=== PATIENT | male | born 1965 | race Caucasian/White ===

== ENCOUNTER 2022-04-18 15:32 | Inpatient (IN) | payer BC ==
[~2022-04-18 15:32] MED LIST: Iopamidol-370 76% 500 ML 1 ML ONE
[2022-04-18] MEDS ORDERED: Chlorhexidine Gluconate 15 ML UDCUP SSP ONE (16:10)
[2022-04-18] MEDS ORDERED: EPINEPHrine 1 MG/ML AMP ONE (16:10)
[2022-04-18] MEDS ORDERED: MINERAL OIL/WHITE PETROLATUM 3.5 GM TUBE ONE (16:10)
[2022-04-18] MEDS ORDERED: Lidocaine 1% (PF) 30 ML VIAL ONE (16:10)
[2022-04-18 16:29] LABS: Hemoglobin 16.1 g/dL (14.0-18.0); Mean Corpuscular HGB CONC 33.3 g/dL (32.0-36.0); Mean Corpuscular Hemoglobin 31.5 pg (27.0-31.0); Mean Corpuscular Volume 94.6 fl (78.0-98.0); Mean Platelet Volume 7.2 fL (7.4-10.4); Platelet Count 207 10x3/uL (130-400); RBC Distribution Width 12.2 % (11.5-14.5); Red Blood Cell (RBC) Count 5.09 mill/uL (4.70-6.10)
[2022-04-18 16:45] LABS: Band 22 % (5-11); Lymphocytes 3 % (21-51); MDiff Complete? YES; Monocytes 7 % (0-10); Neutrophil 68 % (42-75); Platelet Morphology Comment Appears Adequate; RBC Morphology Normal
[2022-04-18 16:47] LABS: ALT (SGPT) 46 U/L (8-55); AST (SGOT) 19 U/L (5-34); Albumin 4.3 g/dL (3.5-5.0); Alkaline Phosphatase 106 U/L (40-110); Anion Gap 15 mmol/L (10-20); BUN (Urea Nitrogen) 13 mg/dL (8.4-25.7); Bilirubin, Total 2.5 mg/dL (0.2-1.2); Calc. Creatinine Clearance 0 mL/min (70-130); Calcium 9.7 mg/dL (7.8-10.44); Carbon Dioxide 24 mmol/L (22-29); Chloride 98 mmol/L (98-107); Estimated GFR 75; Globulin 3.9 g/dL (2.4-3.5); Glucose 129 mg/dL (70-105); Potassium 3.6 mmol/L (3.5-5.1); Protein, Total 8.2 g/dL (6.0-8.3); Sodium 133 mmol/L (136-145)
[2022-04-18] MEDS ORDERED: Ondansetron PF 4 MG/2 ML Vial ONE (17:09)
[2022-04-18] MEDS ORDERED: Morphine 4 MG/ML VIAL ONE (17:09)
[2022-04-18] MEDS ORDERED: Ampicillin/Sulbactam 3 GM in Sodium Chloride 0.9% 100 ML IVPB SCH (17:15)
[2022-04-18] MEDS ORDERED: Acetaminophen 325 MG TAB PO PRN (18:23)
[2022-04-18] MEDS ORDERED: Ondansetron ODT 4 MG TAB PO PRN (18:23)
[2022-04-18] MEDS ORDERED: Ondansetron PF 4 MG/2 ML Vial IVP PRN (18:23)
[2022-04-18] MEDS ORDERED: Acetaminophen 650 MG Suppository PR PRN (18:23)
[2022-04-18 18:34] LABS: SARS-CoV-2 NAA Rapid Test DETECTED (NotDetected)
[2022-04-18] MEDS ORDERED: Morphine 4 MG/ML VIAL SLOW IVP PRN (18:34)
[2022-04-18] MEDS ORDERED: hydrALAZINE 20 MG/ML VIAL SLOW IVP PRN (18:35)
[2022-04-18] MEDS ORDERED: Ketorolac Tromethamine 30 MG/ML VIAL ONE (18:49)
[2022-04-18] MEDS: Sodium Chloride 0.9% 1,000 ML IV SCH (20:33)
[2022-04-18] MEDS: Morphine 4 MG/ML VIAL SLOW IVP PRN (20:34)
[2022-04-18] MEDS: Famotidine/PF 20 mg/2ml Vial SLOW IVP SCH (20:35)
[2022-04-18 20:36] VITALS: BMI 43.5
[2022-04-18] MEDS: Famotidine 20 MG TAB PO SCH (22:27)
[2022-04-19] MEDS: Ampicillin/Sulbactam 3 GM in Sodium Chloride 0.9% 100 ML IVPB SCH ×5 (00:30→23:47)
[2022-04-19] MEDS: Morphine 4 MG/ML VIAL SLOW IVP PRN (03:42)
[2022-04-19] MEDS ORDERED: Chlorhexidine Gluconate 15 ML UDCUP SSP ONE (04:07)
[2022-04-19] MEDS ORDERED: Hydrocortisone 1% Cream 30 GM TUBE ONE (04:07)
[2022-04-19] MEDS ORDERED: Lidocaine 1% PF 5 ML VIAL ONE ×2 (04:07→07:31)
[2022-04-19] MEDS ORDERED: EPINEPHrine 1 MG/ML AMP ONE (04:09)
[2022-04-19] MEDS ORDERED: Lidocaine 1% MPF 2 ML VIAL ONE (04:09)
[2022-04-19] MEDS ORDERED: Fentanyl 250 MCG/5 ML VIAL ONE (05:39)
[2022-04-19] MEDS ORDERED: Midazolam HCl 2 mg/2 ml Vial ONE (05:54)
[2022-04-19] MEDS: Sodium Chloride 0.9% 1,000 ML IV SCH ×3 (06:15→23:52)
[2022-04-19] MEDS ORDERED: Bupivacaine/Epinephrine 0.25% 30 ML VIAL ONE (06:19)
[2022-04-19] MEDS: Famotidine/PF 20 mg/2ml Vial SLOW IVP SCH ×2 (08:20→20:39)
[2022-04-19] MEDS: Famotidine 20 MG TAB PO SCH ×2 (08:21→20:38)
[2022-04-19] MEDS ORDERED: Morphine 4 MG/ML VIAL SLOW IVP PRN (09:34)
[2022-04-19] MEDS ORDERED: HYDROcodone/Acetaminophen 5/325 mg Tablet PO PRN (09:42)
[2022-04-19 10:29] LABS: INR-International Normal Ratio 1.3; Prothrombin Time 16.3 sec (12.0-14.7)
[2022-04-19 10:30] LABS: PTT 33.2 sec (22.9-36.1)
[2022-04-19] MEDS: D5 1/2 NS w/20 mEq KCL 1,000 ML IV SCH ×2 (10:36→23:35)
[2022-04-19 11:24] LABS: Band 18 % (5-11); Hemoglobin 13.3 g/dL (14.0-18.0); Lymphocytes 2 % (21-51); MDiff Complete? YES; Mean Corpuscular HGB CONC 33.3 g/dL (32.0-36.0); Mean Corpuscular Hemoglobin 32.3 pg (27.0-31.0); Mean Platelet Volume 7.4 fL (7.4-10.4); Monocytes 3 % (0-10); Neutrophil 77 % (42-75); Platelet Count 179 10x3/uL (130-400); Platelet Morphology Comment Appears Adequate; RBC Distribution Width 12.2 % (11.5-14.5); RBC Morphology Normal; Red Blood Cell (RBC) Count 4.11 mill/uL (4.70-6.10); White Blood Cell (WBC) Count 14.7 10x3/uL (4.8-10.8)
[2022-04-19] MEDS: Ibuprofen 800 MG TAB PO SCH ×3 (11:53→23:47)
[2022-04-19] MEDS: Chlorhexidine Gluconate 15 ML UDCUP SSP SCH ×3 (11:53→23:47)
[2022-04-19] MEDS: Atorvastatin Calcium 20 MG TAB PO SCH (20:39)
[2022-04-20] MEDS: Ampicillin/Sulbactam 3 GM in Sodium Chloride 0.9% 100 ML IVPB SCH ×4 (05:21→23:27)
[2022-04-20] MEDS: Chlorhexidine Gluconate 15 ML UDCUP SSP SCH ×4 (05:21→23:28)
[2022-04-20] MEDS: Ibuprofen 800 MG TAB PO SCH ×4 (05:21→23:28)
[2022-04-20 06:42] LABS: Hemoglobin 12.6 g/dL (14.0-18.0); Mean Corpuscular HGB CONC 33.5 g/dL (32.0-36.0); Mean Corpuscular Hemoglobin 32.5 pg (27.0-31.0); Mean Corpuscular Volume 97.2 fl (78.0-98.0); Mean Platelet Volume 8.5 fL (7.4-10.4); Platelet Count 165 10x3/uL (130-400); RBC Distribution Width 11.9 % (11.5-14.5); Red Blood Cell (RBC) Count 3.87 mill/uL (4.70-6.10); White Blood Cell (WBC) Count 14.7 10x3/uL (4.8-10.8)
[2022-04-20 07:00] LABS: Band 11 % (5-11); Lymphocytes 4 % (21-51); MDiff Complete? YES; Monocytes 7 % (0-10); Neutrophil 78 % (42-75)
[2022-04-20] MEDS: Famotidine/PF 20 mg/2ml Vial SLOW IVP SCH ×2 (08:06→20:05)
[2022-04-20] MEDS: Famotidine 20 MG TAB PO SCH ×2 (08:07→20:05)
[2022-04-20] MEDS: Atorvastatin Calcium 20 MG TAB PO SCH (20:05)
[2022-04-21] MEDS: Ampicillin/Sulbactam 3 GM in Sodium Chloride 0.9% 100 ML IVPB SCH ×2 (05:41→11:26)
[2022-04-21] MEDS: Ibuprofen 800 MG TAB PO SCH ×2 (05:41→11:26)
[2022-04-21] MEDS: Chlorhexidine Gluconate 15 ML UDCUP SSP SCH ×2 (05:41→11:51)
[2022-04-21 06:52] LABS: #Basophils 0.1 thou/uL (0.0-0.2); #Lymphocytes 1.1 thou/uL (1.20-3.40); #Monocytes 0.9 thou/uL (0.11-0.59); #Neutrophils 11.4 thou/uL (1.40-6.50); %Basophils 0.4 % (0.0-1.0); %Eosinophils 0.1 % (0.0-10.0); %Monocytes 6.7 % (0.0-10.0); %Neutrophils 84.9 % (42.0-75.0); Hemoglobin 12.2 g/dL (14.0-18.0); Mean Corpuscular HGB CONC 32.9 g/dL (32.0-36.0); Mean Corpuscular Hemoglobin 32.2 pg (27.0-31.0); Mean Corpuscular Volume 97.8 fl (78.0-98.0); Platelet Count 182 10x3/uL (130-400); White Blood Cell (WBC) Count 13.4 10x3/uL (4.8-10.8)
[2022-04-21 07:11] LABS: Anion Gap 12 mmol/L (10-20); BUN (Urea Nitrogen) 21 mg/dL (8.4-25.7); Calc. Creatinine Clearance 163 mL/min (70-130); Calcium 8.6 mg/dL (7.8-10.44); Carbon Dioxide 26 mmol/L (22-29); Chloride 108 mmol/L (98-107); Estimated GFR 92; Glucose 140 mg/dL (70-105); Potassium 4.2 mmol/L (3.5-5.1); Sodium 142 mmol/L (136-145)
[2022-04-21 08:04] VITALS: BP 90/58; TEMP 97.5
[2022-04-21] MEDS: Famotidine/PF 20 mg/2ml Vial SLOW IVP SCH (08:07)
[2022-04-21] MEDS: Famotidine 20 MG TAB PO SCH (08:07)
== END 2022-04-21 15:07 | disposition home or self-care (01) | DRG 853 ==
LOC: ERS 15:32 → T4-A 18:30
PROVIDERS: ADMIT Internal Medicine; ATTEND Family Medicine
PROC: 8E0ZXY6 Isolation (ICD-10-PCS; 2022-04-18)
PROC: 0C940ZZ Drainage of Buccal Mucosa, Open Approach (ICD-10-PCS; principal; 2022-04-19)
PROC: 0W950ZZ Drainage of Lower Jaw, Open Approach (ICD-10-PCS; 2022-04-19)
PROC: 0J910ZZ Drainage of Face Subcutaneous Tissue and Fascia, Open Approach (ICD-10-PCS; 2022-04-19)
PROC: 0CTX0Z1 Resection of Lower Tooth, Multiple, Open Approach (ICD-10-PCS; 2022-04-19)
PROC: 0CTW0Z1 Resection of Upper Tooth, Multiple, Open Approach (ICD-10-PCS; 2022-04-19)
PROC: 0J910ZZ Drainage of Face Subcutaneous Tissue and Fascia, Open Approach (ICD-10-PCS; 2022-04-19)
DX: A41.9 Sepsis, unspecified organism (principal); U07.1 COVID-19; K12.2 Cellulitis and abscess of mouth; Z68.41 Body mass index [BMI] 40.0-44.9, adult; I10 Essential (primary) hypertension; F17.210 Nicotine dependence, cigarettes, uncomplicated; K02.9 Dental caries, unspecified; K05.30 Chronic periodontitis, unspecified; K04.1 Necrosis of pulp; E66.01 Morbid (severe) obesity due to excess calories; E78.2 Mixed hyperlipidemia; Z79.899 Other long term (current) drug therapy
CPT/HCPCS: 36415; 70491; 80048; 80053; 83605; 85025; 85610; 85730; 87040; 87070; 87205; 96365; 96374; 96375; J0171; J0295; J1885; J2001; J2250; J2270; J2405; J3010; J3480; J3490; J7050; Q9967; S0028; U0002